=== PATIENT | male | born 1980 | race American Indian/Alaskan Native ===

== ENCOUNTER 2018-07-22 11:54 | Emergency (ER) | payer SELFPAY ==
[2018-07-22 12:07] VITALS: BP 121/62
--- NOTE | 2018-07-22 15:02 | Emergency Department Report ---
ED Rash HPI - HPI Chief Complaint: Skin Rash Stated Complaint: RASH Time Seen by Provider: 07/22/18 15:00 Duration: Today Location: Other (groin and genital area) Suspected Cause: Unknown Rash Symptoms: Yes Itching, No Facial Swelling, No Tongue/Oral Swelling, No Breathing Difficulties, No Choking Sensation, No Wheezing/Dyspnea, No Peeling, No Blistering, No Fever, No Lightheaded, No Malaise, No Myalgias Severity: moderate (Itching) Other History: This is a 38-year-old male here report that he has itching and redness to his groin and genital area that started today as well as a work. He denies any pain or any injury. Denies any respiratory symptoms. Tetanus vaccines up-to-date. No medication taken prior to coming to the emergency room ED Review of Systems ROS: Stated complaint: RASH Other details as noted in HPI Constitutional: denies: chills, fever Respiratory: denies: cough, shortness of breath, SOB with exertion, SOB at rest , stridor, wheezing Cardiovascular: denies: chest pain, palpitations, edema, syncope Gastrointestinal: denies: abdominal pain, nausea, diarrhea Genitourinary: other (rash to genital area). denies: urgency, dysuria, frequency, hematuria, discharge, testicular pain, testicular mass Skin: rash, pruritus. denies: lesions Neurological: denies: headache ED Past Medical Hx - Past Medical History Previous Medical History?: No - Surgical History Past Surgical History?: No - Family History Family history: hypertension - Social History Smoking Status: Current Every Day Smoker Substance Use Type: Alcohol - Medications Home Medications: Home Medications Medication Instructions Recorded Confirmed Last Taken Type Fluconazole [Diflucan TAB] 150 mg PO ONCE 1 Days #1 tablet 07/22/18 Unknown Rx Ketoconazole 2% [Nizoral] 15 gm TP BID 1 Days #1 tube 07/22/18 Unknown Rx Rash Exam - Exam General: Vital signs noted. No distress. Alert and acting appropriately. This is a 38-year-old male well-nourished well-developed in no acute distress. HEENT: No Periorbital Edema, No Conjuctival Injection, No Chemosis, No Perioral Edema, No Tongue Edema, No Uvular Edema, No Compromised Airway, No Drooling Lungs: Yes Good Air Exchange (CTAB), No Wheezes, No Ronchi, No Stridor, No Cough , No Labored Respirations, No Retractions, No Use of Accessory Muscles, No Other Abnormal Lung Sounds Heart: Yes Regular (S1-S2 regular rate and rhythm), No Murmur Skin: Yes Excoriations (bilateral groin and proximal inner thigh), Yes Erythema , Yes Encrustations, No Weeping, No Tenderness, No Edema, No Other Other: Positive: Abdomen Normal, Neurologic Normal, Musculoskeletal Normal ED Course Vital Signs 07/22/18 12:04 Temperature 98.8 F Pulse Rate 87 Respiratory 18 Rate Blood Pressure 121/62 O2 Sat by Pulse 97 Oximetry - Reevaluation(s) Reevaluation #1: 07/22/18 15:07 Patient with Tinea to genital area. He is aware and will treat with antifungal. ED Medical Decision Making - Medical Decision Making This is a 38-year-old male here for itchy rash to genital area that started today. He stated be evaluated. Patient was seen and evaluated by myself. Physical findings for erythema, fungal type rash to genital area to include bilateral groin and bilateral inner upper thigh. Other physical findings are normal. I discussed the patient diagnosis and treatment plan and that he needs to follow up with sawdust machine operator regarding rash which is fungal in nature. Patient vital signs afebrile and is nontoxic in appearance. Patient discharged from emergency room with prescription for ketoconazole and Diflucan tablet. He was understanding to follow up with his primary care and sawdust machine operator in 2-3 days. Critical care attestation.: If time is entered above; I have spent that time in minutes in the direct care of this critically ill patient, excluding procedure time. ED Disposition Clinical Impression: Tinea cruris, Pruritus Disposition: DC-01 TO HOME OR SELFCARE Is pt being admited?: No Does the pt Need Aspirin: No Condition: Stable Instructions: Acute Rash (ED), Itchy Skin (ED) Additional Instructions: Please follow up with sawdust machine operator in 2-3 days Take medication as prescribed If condition worsens, return to the emergency room Prescriptions: Fluconazole [Diflucan TAB] 150 mg PO ONCE 1 Days #1 tablet Ketoconazole 2% [Nizoral] 15 gm TP BID 1 Days #1 tube Referrals: PRIMARY CARE, [Primary Care Provider] - 2-3 Days SKY BASSETT MD [Staff Physician] - 2-3 Days Forms: Work/School Release Form(ED)
== END 2018-07-22 16:03 | disposition home or self-care (01) ==
LOC: ED 11:54
DX: B35.6 Tinea cruris (principal); L29.9 Pruritus, unspecified; F17.200 Nicotine dependence, unspecified, uncomplicated
CPT/HCPCS: 99282

== ENCOUNTER 2020-08-28 13:15 | Emergency (ER) | payer SELFPAY ==
[2020-08-28 13:34] VITALS: BP 147/96
--- NOTE | 2020-08-28 15:44 | Emergency Department Report ---
Chief Complaint: Urogenital-Male Stated Complaint: SIDE PAIN/STD TEST - HPI History of Present Illness: This is 40-year-old -[place] male presents to the emergency room stating he needs an STD work-up. Patient reported to triage that he was having pain in his right side patient denies any pain states that it went away he is just wants to have an STD checkup. - Exam Vital Signs: Vital Signs 08/28/20 13:31 Temperature 99.1 F Pulse Rate 80 Respiratory 18 Rate Blood Pressure 147/96 O2 Sat by Pulse 98 Oximetry Physical Exam: Patient is alert oriented x3 no acute distress nontoxic in appearance. Patient is ambulatory without difficulties. MSE screening note: Focused history and physical exam performed. Due to findings the following was ordered: This is 40-year-old -F[place]ian male presents to the emergency room stating he needs an STD work-up. Patient reported to triage that he was having pain in his right side patient denies any pain states that it went away he is just wants to have an STD checkup. Evaluated patient is stable to follow-up at [facility] for full STD check tomorrow. I informed patient and handout was given that [facility] opens at 830. ED Disposition for MSE Disposition: Z- MED SCREENING EXAM-LEFT Is pt being admited?: No Does the pt Need Aspirin: No Condition: Stable Referrals: PRIMARY CARE [Primary Care Provider] - 3-5 Days
== END 2020-08-28 16:12 | disposition left against medical advice (07) ==
LOC: ED 13:15
DX: A64 Unspecified sexually transmitted disease (principal); Z53.21 Procedure and treatment not carried out due to patient leaving prior to being seen by health care provider

== ENCOUNTER 2020-09-17 11:10 | Emergency (ER) | payer SELFPAY ==
[2020-09-17 11:26] VITALS: BP 123/70
[2020-09-17] MEDS ORDERED: SODIUM CHLORIDE 0.9% IRR 500 ML BOTTLE IR ONE (13:14)
[2020-09-17] MEDS ORDERED: HYDROGEN PEROXIDE 118 ML SOLUTION ONE (13:28)
[2020-09-17] MEDS ORDERED: HYDROGEN PEROXIDE 118 ML SOLUTION TP ONE (13:30)
--- NOTE | 2020-09-17 15:04 | Emergency Department Report ---
ED ENT HPI - General Chief complaint: Earache Stated complaint: EAR ACHE Time Seen by Provider: 09/17/20 12:55 Source: patient Mode of arrival: Ambulatory Limitations: No Limitations - History of Present Illness Initial comments: 40-year-old male complaining of right ear pain decreased hearing x1 week he denies fever cough nausea vomiting. No chest pain or shortness of breath -: week(s) (1) Location: R ear Severity: mild Quality: aching, other (Decrease hearing) Improves with: none Worsens with: none Associated Symptoms: hearing loss. denies: fever, cough, gum swelling, t oothache, pain with swallowing, sore throat, tinnitus, discharge from ear, rhinorrhea - Related Data Previous Rx's Medication Instructions Recorded Last Taken Type Fluconazole (Nf) [Diflucan TAB] 150 mg PO ONCE 1 Days #1 tablet 07/22/18 Unknown Rx Ketoconazole 2% [Nizoral] 15 gm TP BID 1 Days #1 tube 07/22/18 Unknown Rx Neomy/Polymyx B/Hc (Otic) Soln 4 drops AD TID 7 Days #1 bottle 09/17/20 Unknown Rx [Cortisporin (Otic) Soln] Allergies Allergy/AdvReac Type Severity Reaction Status Date / Time No Known Allergies Allergy Unverified 07/22/18 12:04 ED Dental HPI - General Chief complaint: Earache Stated complaint: EAR ACHE Time Seen by Provider: 09/17/20 12:55 Source: patient Mode of arrival: Ambulatory Limitations: No Limitations - Related Data Previous Rx's Medication Instructions Recorded Last Taken Type Fluconazole (Nf) [Diflucan TAB] 150 mg PO ONCE 1 Days #1 tablet 07/22/18 Unknown Rx Ketoconazole 2% [Nizoral] 15 gm TP BID 1 Days #1 tube 07/22/18 Unknown Rx Neomy/Polymyx B/Hc (Otic) Soln 4 drops AD TID 7 Days #1 bottle 09/17/20 Unknown Rx [Cortisporin (Otic) Soln] Allergies Allergy/AdvReac Type Severity Reaction Status Date / Time No Known Allergies Allergy Unverified 07/22/18 12:04 ED Review of Systems ROS: Stated complaint: EAR ACHE Other details as noted in HPI Comment: All other systems reviewed and negative Constitutional: denies: chills, fever, malaise ENT: ear pain, hearing loss (decreased hearing from the right ear). denies: throat pain Respiratory: denies: cough, SOB with exertion Cardiovascular: denies: chest pain, dyspnea on exertion Endocrine: no symptoms reported Gastrointestinal: denies: abdominal pain, nausea, vomiting Skin: denies: rash, lesions Neurological: denies: headache, paresthesias ED Past Medical Hx - Past Medical History Previous Medical History?: No - Surgical History Past Surgical History?: No - Social History Smoking Status: Current Every Day Smoker Substance Use Type: Alcohol - Medications Home Medications: Home Medications Medication Instructions Recorded Confirmed Last Taken Type Fluconazole (Nf) [Diflucan TAB] 150 mg PO ONCE 1 Days #1 tablet 07/22/18 Unk nown Rx Ketoconazole 2% [Nizoral] 15 gm TP BID 1 Days #1 tube 07/22/18 Unknown Rx Neomy/Polymyx B/Hc (Otic) Soln 4 drops AD TID 7 Days #1 bottle 09/17/20 Unknown Rx [Cortisporin (Otic) Soln] ED Physical Exam - General Limitations: No Limitations General appearance: alert, in no apparent distress - Head Head exam: Present: atraumatic - Eye Eye exam: Present: normal appearance - ENT ENT exam: Present: other (right ear impacted with cerumen. Left TM normal ) - Neck Neck exam: Present: normal inspection - Respiratory Respiratory exam: Present: normal lung sounds bilaterally - Cardiovascular Cardiovascular Exam: Present: regular rate, normal heart sounds - GI/Abdominal GI/Abdominal exam: Present: soft - Neurological Exam Neurological exam: Present: alert, oriented X3 - Psychiatric Psychiatric exam: Present: normal affect - Skin Skin exam: Present: warm, dry, intact ED Course Vital Signs 09/17/20 11:25 Temperature 98.6 F Pulse Rate 77 Respiratory 18 Rate Blood Pressure 123/70 O2 Sat by Pulse 99 Oximetry - Reevaluation(s) Reevaluation #1: 09/17/20 13; 11 Incomplete removal of earwax patient notified he does admit to hearing better out of his right ear and no current pain - Ear Wax Removal Right Ear Ear Canal Irrigated by: RN Ear Canal Irrigated With: warm saline with H2O2 using syringe/angiocath, bulb syringe Ear Canal(s) Curettaged: plastic scoops Results: Re-examined: some cerumen remains TM Visible: other (Copious amount of cerumen removed still unable to assess tympanic membrane external ear canal is excoriated and red) Patient Tolerated Procedure: well Complications: no problems ED Medical Decision Making - Medical Decision Making Cerumen impaction of the right ear otitis externa of the right ear. Discussed w ith patient the need to do at home earwax removal in addition to Cortisporin ointment to aid in the healing of external ear canal Critical Care Time: No Critical care attestation.: If time is entered above; I have spent that time in minutes in the direct care of this critically ill patient, excluding procedure time. ED Disposition Clinical Impression: Impacted cerumen of right ear Otitis externa Qualifiers: Otitis externa type: unspecified type Chronicity: acute Laterality: right Qualified Code(s): H60.501 - Unspecified acute noninfective otitis externa, right ear Disposition: TO HOME OR SELFCARE Is pt being admited?: No Does the pt Need Aspirin: No Condition: Stable Instructions: Carbamide Peroxide (Into the ear), Cerumen Impaction (ED) Additional Instructions: Use the [id number] earwax solution to aid in removal of earwax. After earwax is removed consider doing 1 to 2 drops of mineral oil monthly to prevent earwax buildup. Use the prescription eardrop to aid in healing of the external ear infection. Return to the emergency room for any worsening symptoms fever worsening ear pain. Take Tylenol 1-2 tabs every 6 hours as needed for pain or you can take 2 [id number] ibuprofen every 6 to 8 hours as needed for pain Prescriptions: Neomy/Polymyx B/Hc (Otic) Soln [Cortisporin (Otic) Soln] 4 drops AD TID 7 Days #1 bottle Referrals: PRIMARY CARE, [Primary Care Provider] - 3-5 Days Time of Disposition: 15:34
== END 2020-09-17 15:44 | disposition home or self-care (01) ==
LOC: ED 11:10
DX: H61.21 Impacted cerumen, right ear (principal); H60.91 Unspecified otitis externa, right ear; F17.200 Nicotine dependence, unspecified, uncomplicated; Z79.899 Other long term (current) drug therapy

== ENCOUNTER 2022-05-22 19:24 | Emergency (ER) | payer SELFPAY ==
[2022-05-23] MEDS ORDERED: SODIUM CHLORIDE 0.9% 1000 ML 1,000 ML IV ONE (03:58)
[2022-05-23] MEDS ORDERED: ONDANSETRON 4 MG/2 ML INJ IV ONE (03:58)
--- NOTE | 2022-05-23 04:23 | XRay Report ---
CHEST 2 VIEWS INDICATION / CLINICAL INFORMATION: dizziness. COMPARISON: None available. FINDINGS: SUPPORT DEVICES: None. HEART / MEDIASTINUM: Heart size and mediastinal contour appear within normal limits. LUNGS / PLEURA: No significant pulmonary or pleural abnormality. No pneumothorax. BONES: No significant osseous abnormality. ADDITIONAL FINDINGS: No significant additional findings. IMPRESSION: 1. No active cardiopulmonary disease. Signer Name: Yousif Cordova II, MD Signed: 05/23/2022 4:19 AM Workstation Name: [id number]
--- NOTE | 2022-05-23 04:43 | Emergency Department Report ---
ED General Adult HPI - General Chief complaint: Weakness Stated complaint: DIZZY,VOMITING Time Seen by Provider: 05/23/22 03:56 Source: patient Mode of arrival: Ambulatory Limitations: No Limitations - History of Present Illness Initial comments: Patient is a 41-year-old male patient denies significant history patient presents for generalized dizziness and nausea vomiting x2 days. Patient states history of occasional smoker. Patient denies substance. There has been no fever. Symptoms are rated at 5/10. Last p.o. intake was yesterday afternoon wi thout nausea vomiting. Patient denies pain at this time. - Related Data Previous Rx's Medication Instructions Recorded Last Taken Type Fluconazole (Nf) [Diflucan TAB] 150 mg PO ONCE 1 Days #1 tablet 07/22/18 Unknown Rx Ketoconazole 2% [Nizoral] 15 gm TP BID 1 Days #1 tube 07/22/18 Unknown Rx Neomy/Polymyx B/Hc (Otic) Soln 4 drops AD TID 7 Days #1 bottle 09/17/20 Unknown Rx [Cortisporin (Otic) Soln] Dicyclomine [Bentyl] 10 mg PO QID PRN #15 capsule 05/23/22 Unknown Rx Allergies Allergy/AdvReac Type Severity Reaction Status Date / Time No Known Allergies Allergy Unverified 07/22/18 12:04 ED Review of Systems ROS: Stated complaint: DIZZY,VOMITING Other details as noted in HPI Constitutional: malaise. denies: chills, fever Eyes: denies: eye pain, eye discharge, vision change ENT: as per HPI. denies: throat pain, dental pain, epistaxis, congestion Respiratory: no symptoms reported Cardiovascular: denies: chest pain, palpitations Endocrine: no symptoms reported Gastrointestinal: abdominal pain, nausea, vomiting. denies: diarrhea Genitourinary: denies: urgency, dysuria, frequency, hematuria, discharge Musculoskeletal: denies: back pain, joint swelling, arthralgia Skin: denies: rash, lesions Neurological: denies: headache, weakness, paresthesias, vertigo Psychiatric: denies: anxiety, depression Hematological/Lymphatic: denies: easy bleeding, easy bruising ED Past Medical Hx - Social History Smoking Status: Current Every Day Smoker Substance Use Type: Alcohol - Medications Home Medications: Home Medications Medication Instructions Recorded Confirmed Last Taken Type Fluconazole (Nf) [Diflucan TAB] 150 mg PO ONCE 1 Days #1 tablet 07/22/18 Unknown Rx Ketoconazole 2% [Nizoral] 15 gm TP BID 1 Days #1 tube 07/22/18 Unknown Rx Neomy/Polymyx B/Hc (Otic) Soln 4 drops AD TID 7 Days #1 bottle 09/17/20 Unknown Rx [Cortisporin (Otic) Soln] Dicyclomine [Bentyl] 10 mg PO QID PRN #15 capsule 05/23/22 Unknown Rx ED Physical Exam - General Limitations: No Limitations ED Course Vital Signs 05/22/22 19:40 Temperature 98.3 F Pulse Rate 69 Respiratory 18 Rate Blood Pressure 134/94 O2 Sat by Pulse 97 Oximetry ED Medical Decision Making - Lab Data Result diagrams: 05/23/22 04:23 05/23/22 04:23 Lab Results 05/23/22 05/23/22 Range/Units 04:23 04:23 WBC 3.0 L (4.5-11.0) K/mm3 RBC 4.56 (3.65-5.03) M/mm3 Hgb 14.5 (11.8-15.2) gm/dl Hct 43.4 (35.5-45.6) % MCV 95 H (84-94) fl MCH 32 (28-32) pg MCHC 34 (32-34) % RDW 13.5 (13.2-15.2) % Plt Count 252 (140-440) K/mm3 Seg Neutrophils % Vinyl Installer Sodium 138 (137-145) mmol/L Potassium 4.4 (3.6-5.0) mmol/L Chloride 101.0 (98-107) mmol/L Carbon Dioxide 28 (22-30) mmol/L Anion Gap 13 mmol/L BUN 10 (9-20) mg/dL Creatinine 1.1 (0.8-1.3) mg/dL Estimated GFR > 60 ml/min BUN/Creatinine Ratio 9 % Glucose 110 H (75-100) mg/dL Calcium 9.3 (8.4-10.2) mg/dL Total Bilirubin 0.20 (0.1-1.2) mg/dL AST 31 (5-40) units/L ALT 25 (7-56) units/L Alkaline Phosphatase 56 (35-129) units/L Troponin T < 0.010 (0.00-0.029) ng/mL Total Protein 7.1 (6.3-8.2) g/dL Albumin 4.6 (3.9-5) g/dL Albumin/Globulin Ratio 1.8 % - EKG Data EKG shows normal: sinus rhythm, axis, intervals, QRS complexes, ST-T waves - EKG Data When compared to previous EKG there are: previous EKG unavailable Interpretation: normal EKG (Normal sinus rhythm no ST elevated UT interpreted by ED attending.) - Radiology Data Radiology results: report reviewed, image reviewed CHEST 2 VIEWS INDICATION / CLINICAL INFORMATION: dizziness. COMPARISON: None available. FINDINGS: SUPPORT DEVICES: None. HEART / MEDIASTINUM: Heart size and mediastinal contour appear within normal limits. LUNGS / PLEURA: No significant pulmonary or pleural abnormality. No pneumothorax. BONES: No significant osseous abnormality. ADDITIONAL FINDINGS: No significant additional findings. IMPRESSION: 1. No active cardiopulmonary disease. Signer Name: Ruby Cordova II, MD Signed: 05/23/2022 4:19 AM Workstation Name: [id number] Transcribed By: MISA Dictated By: RUBY CORDOVA II, MD Electronically Authenticated By: RUBY CORDOVA II, MD Signed Date/Time: 05/23/22418 DD/ 7 TD/TT: - Medical Decision Making Symptoms are improved with medications given in ED. Patient tolerated p.o. challenge at this time without nausea vomiting. EKG is normal sinus rhythm no ST elevated UT, interpreted by ED attending. Chest x-ray is normal no infiltrates no opacities. Troponin is less than 0.01. Heart score is 0. TARA score is 0. Plan DC to home with prescriptions. Continue to hydrate. Return to emergency department should symptoms worsen. Patient verbalizes agreement and understanding of discharge plan. Patient DC'd home in stable condition at this time. Critical Care Time: Yes Critical care attestation.: If time is entered above; I have spent that time in minutes in the direct care of this critically ill patient, excluding procedure time. ED Disposition Clinical Impression: Dizziness Nausea & vomiting Qualifiers: Vomiting type: unspecified Qualified Code(s): R11.2 - Nausea with vomiting, unspecified Disposition: 01 HOME / SELF CARE / HOMELESS Is pt being admited?: No Does the pt Need Aspirin: No Condition: Stable Instructions: Dizziness, Nausea and Vomiting, Adult, [id number] Additional Instructions: Take medications as prescribed, hydrate as directed. Follow-up with your [facility] doctor in 2 to 3 days. Return to emergency department should symptoms worsen. Prescriptions: Dicyclomine [Bentyl] 10 mg PO QID PRN #15 capsule PRN Reason: abdominal cramping Referrals: SUHAS XIONG MD [Primary Care Provider] - 3-5 Days Forms: Work/School Release Form(ED) Time of Disposition: 05:41
[2022-05-23 04:53] LABS: Hematocrit 43.4 % (35.5-45.6); Hemoglobin 14.5 gm/dl (11.8-15.2); Mean Corpuscular HGB Conc 34 % (32-34); Mean Corpuscular Volume 95 fl (84-94); Platelet Count 252 K/mm3 (140-440); Red Blood Count 4.56 M/mm3 (3.65-5.03); Red Cell Distribution Width 13.5 % (13.2-15.2)
[2022-05-23 05:04] LABS: Alanine Aminotransferase 25 units/L (7-56); Albumin 4.6 g/dL (3.9-5); BUN/Creatinine Ratio 9; Blood Urea Nitrogen 10 mg/dL (9-20); Calcium 9.3 mg/dL (8.4-10.2); Hemolysis Index 17
[2022-05-23 06:40] VITALS: BP 118/82
[2022-05-23 06:50] LABS: Basophils % (Manual) 0 % (0.0-1.8); Hypochromasia 2+; Total Cells Counted 100
[2022-05-23 06:52] LABS: Ovalocytes 1+; Platelet Estimate Consistent w Auto
--- NOTE | 2022-05-24 19:03 | Electrocardiograph Report ---
[facility] Test Date: 2022-05-23 Test Time: 04:21:17 Pat Name: IVIS SAMS Department: Room: Gender: M Cash Application Representative: INO : 1980 Requested By: DHEERAJ MEDRANO Order Number: [id number] Reading MD: Jonny Santana Measurements Intervals [place] Rate: 58 P: 20 MT: 202 QRS: 11 QRSD: 86 T: 8 QT: 449 QTc: 440 Interpretive Statements Sinus rhythm Borderline prolonged MT interval Early repolarization ST changes No previous ECG available for comparison Electronically Signed On 05-24-2022 19:03:36 EDT by Jonny Santana
== END 2022-05-23 06:41 | disposition home or self-care (01) ==
LOC: ED 19:24
DX: R11.2 Nausea with vomiting, unspecified (principal); R42 Dizziness and giddiness; Z79.899 Other long term (current) drug therapy
CPT/HCPCS: 36415; 71046; 80053; 84484; 85007; 85025; 93005; 96361; 96374; 99284; J2405